=== PATIENT | female | born 1950 | race Caucasian/White ===

== ENCOUNTER 2017-08-29 15:17 | Emergency (ER) | payer MEDICARE ==
[~2017-08-29] VITALS: Ht 167.6 cm; Wt 63.0 kg
[2017-08-29 15:19] VITALS: BP 202/98; PULSE 74; RESP 18; TEMP 97.8; O2SAT 97
[2017-08-29] MEDS ORDERED: UMEC1INH INH (16:56)
[2017-08-29] MEDS ORDERED: METH4PAK PO (16:56)
[2017-08-29] MEDS ORDERED: ADVA250A INH (16:56)
--- NOTE | 2017-08-29 17:09 | PD ---
HPI Chief Complaint: ENT Complaint Time Seen by Provider: 16:44 Travel History International Travel<30 days: No Contact w/Intl Traveler<30days: No Traveled to known affect area: No History of Present Illness HPI 67-year-old female presents to emergency department with complaint of left- sided sore throat this morning with difficulty swallowing today. Denies lump in throat, unusual drooling. Reports painful swallowing. Reports left ear pain and facial pain. Denies fever, vomiting, cough, nasal congestion. This was similar symptoms. Rates pain /. Has taken Vicodin with good relief of pain. No known aggravating factors. 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 No known allergies. History of COPD. Has no other medical complaints. No other modifying factors or associated signs and symptoms. PFSH Past Medical History Cancer: Yes COPD: Yes Influenza Vaccination: No ?: Not Past Surgical History Surgical History: No Previous Surgery Hysterectomy: Yes Social History Alcohol Use: No Tobacco Use: No Substance Use: No Allergies-Medications (Allergen,Severity, Reaction): Coded Allergies: No Known Allergies (Unverified , 08/29/17) Reported Meds & Prescriptions Reported Meds & Active Scripts Active Ibuprofen 800 Mg Tab 800 Mg PO Q6HR PRN Ciprofloxacin (Ciprofloxacin HCl) 500 Mg Tab 500 Mg PO BID 5 Days Medrol Dosepak (Methylprednisolone) 4 Mg Dspk 4 Mg PO DIRECTED Per Pharmacist direction Reported Methylprednisolone Dosepak (Methylprednisolone) 4 Dspk 4 Mg PO DIRECTED Per Pharmacist Direction Incruse Ellipta Inh (Umeclidinium Pickerel Inh) 0.0625 Mg/Act Inh 62.5 Mcg INH DAILY Advair Diskus Inh (Fluticasone-Salmeterol Inh) 250-50 Mcg/Blist Aer 1 Puff INH BID Rinse mouth after use. Review of Systems Except as stated in HPI: all other systems reviewed are Neg Physical Exam Narrative GENERAL: Well-nourished, well-developed female patient, in no acute distress SKIN: Warm and dry. No rash. HEAD: Atraumatic. Normocephalic. Left face, just in front of the left ear, with reproducible tenderness on palpation and minimal swelling noted; without erythema. EYES: Pupils equal and round at 3 mm with brisk reaction. No scleral icterus. No injection or drainage. PERRLA. ENT: Mucosa pink and dry. Pharynx without erythema, exudate, or edema. No Uvular edema. No uvular, palatal, or tonsillar deviation. Airway patent. EARS: Bilateral pinnae and external canals appear within normal limits. Bilateral tympanic membranes without erythema, dullness or perforation.. MOUTH: Mucous membranes moist, no lesions, tongue and gums appear normal. No reproducible tenderness on palpation to the left upper and lower dentition. NECK: Trachea midline. Anterior cervical lymphadenopathy and tenderness. CARDIOVASCULAR: Regular rate. RESPIRATORY: No accessory muscle use. GASTROINTESTINAL: Flat. MUSCULOSKELETAL: No obvious deformities. No clubbing. No cyanosis. No edema. NEUROLOGICAL: Awake and alert. Oriented 3. No obvious cranial nerve deficits. Motor grossly within normal limits. Normal speech. Moves all extremities. PSYCHIATRIC: Appropriate mood and affect; insight and judgment normal. Data Data Last Documented VS Vital Signs Date Time Temp Pulse Resp B/P (MAP) Pulse Ox O2 Delivery O2 Flow Rate FiO2 08/29/17 17:47 08/29/17 15:19 97.8 74 18 97 Orders Orders Ketorolac Inj (Toradol Inj) (08/29/17 17:15) Group A Rapid Strep Screen (08/29/17 17:10) Ed Discharge Order (08/29/17 17:41) Strep Culture (Group A) (08/29/17 14:10) MDM Medical Decision Making Medical Screen Exam Complete: Yes Emergency Medical Condition: Yes Medical Record Reviewed: Yes Differential Diagnosis parotiditis, pharyngitis, dentalgia, dental abscess Narrative Course 57-year-old female with minimal left facial edema and tenderness on palpation on physical exam. Oropharynx is unremarkable. No dental pain elicited on palpation of physical exam. No signs of left ear infection. On physical exam. I asked Dr. Delatorre, my attending physician, to evaluate the patient and he recommends Medrol Dosepak and Cipro x5 days for parotiditis. Medrol Dosepak and ciprofloxacin prescribed for home. Toradol administered in the ER. Patient has prescription for Vicodin at home. Instructed patient to follow up with primary care provider. Patient verbalizes understanding and agreement with treatment plan. Patient is medically cleared and stable for discharge. Discussed reasons to return to the emergency department. Patient agrees with treatment plan. The patients vital signs are stable and the patient is stable for outpatient follow-up and treatment. Patient discharged home, stable and in no acute distress. Diagnosis Primary Impression: Parotiditis Referrals: Primary Care Physician Patient Instructions: General Instructions Additional Instructions: Antibiotics as prescribed Ibuprofen or Tylenol as instructed and as needed for pain and inflammation Ice and/or heat to affected area to decrease pain and inflammation Follow-up with primary care provider Return to the emergency department immediately with worsening of symptoms Med/Other Pt SpecificInfo: Prescription(s) given Scripts Ibuprofen (Ibuprofen) 800 Mg Tab 800 MG PO Q6HR Y for PAIN, #30 TAB 0 Refills Prov: Chelo Jo 08/29/17 Ciprofloxacin (Ciprofloxacin) 500 Mg Tab 500 MG PO BID for Infection for 5 Days, #10 TAB 0 Refills Prov: Chelo Jo 08/29/17 Methylprednisolone Dosepak (Medrol Dosepak) 4 Mg Dspk 4 MG PO DIRECTED, #1 DSPK 0 Refills Per Pharmacist direction Prov: Chelo Jo 08/29/17 Disposition: 01 DISCHARGE HOME Condition: Stable Chelo Jo Aug 29, 2017 17:09
[2017-08-29] MEDS ORDERED: KETOROLAC TROMETHAMINE 60 MG/2 ML (IM) VIAL IM ONE (17:15)
[2017-08-29] MEDS ORDERED: MEDR4PAK PO (17:39)
[2017-08-29] MEDS ORDERED: CIPR500T2 PO (17:39)
[2017-08-29] MEDS ORDERED: IBUP1TAB7 PO (17:39)
== END 2017-08-29 18:24 | disposition home or self-care (01) ==
LOC: NEPD 15:17
DX: K11.20 Sialoadenitis, unspecified (principal); H92.02 Otalgia, left ear; R51 Headache; J44.9 Chronic obstructive pulmonary disease, unspecified; Z79.51 Long term (current) use of inhaled steroids; Z79.899 Other long term (current) drug therapy
CPT/HCPCS: 87081; 87880; 96372; 99283; J1885